=== PATIENT | male | born 1990 | race Caucasian/White ===

== ENCOUNTER 2016-12-30 11:18 | Emergency (ER) | payer MEDICAID ==
[~2016-12-30] VITALS: Ht 172.7 cm; Wt 122.5 kg
[2016-12-30 11:23] VITALS: BP 131/87
== END 2016-12-30 12:10 | disposition home or self-care (01) ==
LOC: ED 11:18
DX: J45.909 Unspecified asthma, uncomplicated (principal)

== ENCOUNTER 2017-01-15 19:05 | Emergency (ER) | payer MEDICAID ==
[~2017-01-15] VITALS: Ht 172.7 cm; Wt 126.3 kg
[2017-01-15 23:26] VITALS: BP 150/85
== END 2017-01-15 23:26 | disposition home or self-care (01) ==
LOC: ED 19:05
DX: J20.9 Acute bronchitis, unspecified (principal); J45.901 Unspecified asthma with (acute) exacerbation
CPT/HCPCS: J7613

== ENCOUNTER 2017-04-27 15:26 | Emergency (ER) | payer SELFPAY ==
[~2017-04-27] VITALS: Ht 172.7 cm; Wt 122.9 kg
[2017-04-27 17:32] VITALS: BP 116/68
== END 2017-04-27 17:32 | disposition home or self-care (01) ==
LOC: ED 15:26
DX: R09.1 Pleurisy (principal)

== ENCOUNTER 2017-07-21 12:11 | Emergency (ER) | payer SELFPAY ==
[~2017-07-21] VITALS: Ht 167.6 cm; Wt 122.5 kg
[2017-07-21 12:36] VITALS: BP 134/87; Ht 167.6 cm; Wt 122.5 kg
== END 2017-07-21 15:51 | disposition home or self-care (01) ==
LOC: ED 12:11
DX: J11.1 Influenza due to unidentified influenza virus with other respiratory manifestations (principal); J45.909 Unspecified asthma, uncomplicated
CPT/HCPCS: 87804; Q0092